=== PATIENT | female | born 1990 | race Two or more races ===

== ENCOUNTER 2018-02-06 17:40 | Emergency (ER) | payer BC, MEDICAID ==
[~2018-02-06] VITALS: Ht 167.6 cm; Wt 81.0 kg
[2018-02-06] MEDS ORDERED: SODIUM CHLORIDE 0.9% 1,000 ML IV ONE (18:12)
[2018-02-06] MEDS ORDERED: TETANUS, DIPHTHERIA, PERTUSSIS VAC/PF 0.5ML (>7YR OLD) IM ONE (18:15)
[2018-02-06 19:20] LABS: HCG SCREEN NEGATIVE
[2018-02-06] MEDS ORDERED: IOHEXOL-300 100 ML BOTTLE ONE (20:10)
[2018-02-06 21:55] VITALS: BP 118/70
== END 2018-02-06 22:25 | disposition home or self-care (01) ==
LOC: ER 17:40
DX: M25.531 Pain in right wrist (principal); M79.641 Pain in right hand; V43.52XA Car driver injured in collision with other type car in traffic accident, initial encounter; Y93.89 Activity, other specified; Y92.89 Other specified places as the place of occurrence of the external cause; Y99.8 Other external cause status
CPT/HCPCS: 29130; 70450; 71260; 72125; 73090; 73110; 73130; 74177; 82962; 84703; 90471; 90715; 99285; J7030; Q9967; Z7610